=== PATIENT | female | born 1990 | race African-American/Black ===

== ENCOUNTER 2019-09-21 01:33 | Emergency (ER) | payer OTHER ==
[2019-09-21 01:44] VITALS: TEMP 97.3; BMI 22.6
--- NOTE | 2019-09-21 03:24 | PDOC ---
Attending Attestation - Resident Resident Name: Mukesh Haskins - ED Attending Attestation I have performed the following: I have examined & evaluated the patient, The case was reviewed & discussed with the resident, I agree w/resident's findings & plan - HPI HPI: 09/21/19 06:00 Pt states that she feels palpitations. She has no other complaints. States that she felt her heart going fast. She has no job and no kids and no ill contacts. She goes to school at [employer] and commutes. P has no fever and no chills and no vomiting. - Physicial Exam PE: 09/21/19 06:01 afebrile VSS HEENT normal PEERLA Heart S1S2 RRR Lungs clear abd soft nt nd no C/C/E of legs neuro no focal defcits strength and motor intact - Medical Decision Making 09/21/19 05:13 CBC is normal Urine preg negative 09/21/19 05:18 chem is normal 09/21/19 06:02 HR is <80 Heart Score/ECG Review - ECG Intrepretation Rhythm: Regular Rhythm - [place]: Normal - P and CT Prominent R with upright T in V1 (true posterior CA): No Delta Wave(s) Present: No WPW: No - QRS Poor R Wave Progression: No Q Wave Present: No - ST and T Early Repolarization: No Non Specific ST-T Wave changes: No Flattened T Waves: No Prolonged Q-T Interval: No - ECG Impressions Normal ECG: Yes Non-specific ST Elevation: No Ischemic Changes: No Torsades stephanie Pointes: No WPW: No
--- NOTE | 2019-09-21 03:33 | PDOC ---
History of Present Illness <Denise Rodriguez - Last Filed: 09/21/19 05:29> <BethCarmen - Last Filed: 09/21/19 05:36> - History of Present Illness Initial Comments: The pt is a 29F w/ no reported PMH who presents for evaluation of palpitations and concern or a HR of 101 at home at 1800 yesterday evening. She states that she will have intermittent episodes of palpitations that are unrelated to activity or anxiety. She was evaluated with a halter monitor and and ECHO in 2018 that she reports as normal. The pt is concerned that she may be anemic or have thyroid dysfunction. Denies fevers/chills, BEAN, dizziness, vision changes, N/V/C/D, chest pain, trouble breathing, abdominal pain, dysuria, hematuria, or changes in sensation. Menses are 4-5 days and are not described as being persistently heavy. 09/21/19 03:29 <Mukesh Haskins - Last Filed: 09/21/19 06:20> - General Chief Complaint: Palpitations Stated Complaint: PALPITATIONS Time Seen by Provider: 09/21/19 03:23 Past History <Denise Rodriguez - Last Filed: 09/21/19 05:29> <Carmen Beth - Last Filed: 09/21/19 05:36> - Psycho Social/Smoking Cessation Hx Smoking History: Never smoked Hx Alcohol Use: No Drug/Substance Use Hx: No <Mukesh Haskins - Last Filed: 09/21/19 06:20> - Past Medical History Allergies/Adverse Reactions: Allergies Allergy/AdvReac Type Severity Reaction Status Date / Time No Known Allergies Allergy Verified 09/21/19 01:43 Review of Systems - Review of Systems Able to Perform ROS?: Yes Comments:: GENERAL/CONSTITUTIONAL: No fever or chills. No weakness HEAD, EYES, EARS, NOSE AND THROAT: No change in vision. No change in hearing. No sore throat CARDIOVASCULAR: No chest pain or shortness of breath RESPIRATORY: Denies cough, hemoptysis GASTROINTESTINAL: No nausea, vomiting, diarrhea or constipation GENITOURINARY: No dysuria, frequency, or change in urination MUSCULOSKELETAL: No joint or muscle swelling or pain. No neck or back pain SKIN: No rash NEUROLOGIC: No headache, vertigo, loss of consciousness, or change in strength/ sensation ENDOCRINE: No increased thirst. No abnormal weight change HEMATOLOGIC/LYMPHATIC: No anemia, easy bleeding, or history of blood clots ALLERGIC/IMMUNOLOGIC: No hives or skin allergy 09/21/19 03:31 Is the patient limited Irish proficient: No <Mukesh Haskins - Last Filed: 09/21/19 06:20> *Physical Exam - Vital Signs Last Vital Signs Temp Pulse Resp BP Pulse Ox 97.3 F L 94 H 18 120/70 100 09/21/19 01:43 09/21/19 01:43 09/21/19 01:43 09/21/19 01:43 09/21/19 01:43 <Denise Rodriguez - Last Filed: 09/21/19 05:29> - Vital Signs Last Vital Signs Temp Pulse Resp BP Pulse Ox 97.3 F L 94 H 18 120/70 09/21/19 01:43 09/21/19 01:43 09/21/19 01:43 09/21/19 01:43 09/21/19 01:43 <Carmen Beth - Last Filed: 09/21/19 05:36> - Vital Signs Last Vital Signs Temp Pulse Resp BP Pulse Ox 97.3 F L 94 H 18 120/70 09/21/19 01:43 09/21/19 01:43 09/21/19 01:43 09/21/19 01:43 09/21/19 01:43 - Physical Exam GENERAL: Awake, alert, and oriented to person/place/time, in no acute distress HEAD: No signs of trauma, normoc ephalic, atraumatic EYES: PERRLA, EOMI, sclera anicteric, conjunctiva clear ENT: Hearing grossly normal, nares patent, oropharynx clear without exudates. Moist mucosa LUNGS: No distress, speaks in full sentences, clear to auscultation bilaterally HEART: Regular rate and rhythm, normal S1 and S2, no murmurs appreciated, peripheral pulses normal and equal bilaterally ABDOMEN: Soft, nontender, normoactive bowel sounds. No guarding, no rebound EXTREMITIES: Normal inspection, Normal range of motion, no edema. No clubbing or cyanosis NEUROLOGICAL: Cranial nerves II through XII grossly intact. Normal speech, normal gait, no focal sensorimotor deficits SKIN: Warm, Dry 09/21/19 03:32 <Mukesh Haskins - Last Filed: 09/21/19 06:20> ED Treatment Course - LABORATORY CBC & Chemistry Diagram: 09/21/19 03:25 09/21/19 03:25 - ADDITIONAL ORDERS Additional order review: Laboratory Results 09/21/19 09/21/19 03:25 03:25 Sodium 137 Potassium 4.0 Chloride 109 H Carbon Dioxide 22 Anion Gap 6 L BUN 9.1 Creatinine 0.7 Est GFR (CKD-EPI)AfAm 137.62 Est GFR (CKD-EPI)NonAf 118.74 Random Glucose 112 H Calcium 8.7 Total Bilirubin 0.6 AST 20 ALT 25 Alkaline Phosphatase 77 Total Protein 7.3 Albumin 3.9 TSH 3.59 Serum , Qual Negative 09/21/19 03:25 RBC 4.35 MCV 90.1 MCHC 33.8 RDW 13.1 MPV 11.3 H Neutrophils % 64.7 Lymphocytes % 25.9 Monocytes % 6.9 Eosinophils % 2.0 Basophils % 0.5 <Denise Rodriguez - Last Filed: 09/21/19 05:29> - LABORATORY CBC & Chemistry Diagram: 09/21/19 03:25 09/21/19 03:25 - ADDITIONAL ORDERS Additional order review: Laboratory Results 09/21/19 09/21/19 03:25 03:25 Sodium 137 Potassium 4.0 Chloride 109 H Carbon Dioxide 22 Anion Gap 6 L BUN 9.1 Creatinine 0.7 Est GFR (CKD-EPI)AfAm 137.62 Est GFR (CKD-EPI)NonAf 118.74 Random Glucose 112 H Calcium 8.7 Total Bilirubin 0.6 AST 20 ALT 25 Alkaline Phosphatase 77 Total Protein 7.3 Albumin 3.9 TSH 3.59 Serum , Qual Negative 09/21/19 03:25 RBC 4.35 MCV 90.1 MCHC 33.8 RDW 13.1 MPV 11.3 H Neutrophils % 64.7 Lymphocytes % 25.9 Monocytes % 6.9 Eosinophils % 2.0 Basophils % 0.5 <Carmen Beth - Last Filed: 09/21/19 05:36> - LABORATORY CBC & Chemistry Diagram: 09/21/19 03:25 09/21/19 03:25 <Mukesh Haskins - Last Filed: 09/21/19 06:20> Medical Decision Making - Medical Decision Making The pt is a 29F w/ no reported PMH who presents for evaluation of palpitations and concern or a HR of 101 at home at 1800 yesterday evening. ED Course CMP, CBC, TSH, Serum Preg ECG 09/21/19 03:32 No leukocytosis No anemia Lytes unremarkable No DARCIE LFTs wnl TSH wnl Serum preg neg Results discussed w/ patient Plan for D/C w/ PCP f/u Discharge instructions and return precautions given Patient in agreement and verbalized understanding Dispo: Home <Mukesh Haskins - Last Filed: 09/21/19 06:20> Discharge - Discharge Information Problems reviewed: Yes - Admission No <Denise Rodriguez - Last Filed: 09/21/19 05:29> <BethCarmen - Last Filed: 09/21/19 05:36> - Discharge Information Problems reviewed: Yes - Admission No <Mukesh Haskins - Last Filed: 09/21/19 06:20> - Discharge Information Clinical Impression/Diagnosis: Palpitations Condition: Stable Disposition: HOME - Follow up/Referral Referrals: Jonathon Godinez MD [Primary Care Provider] - - Patient Discharge Instructions Patient Printed Discharge Instructions: DI for Dehydration -- Adult Additional Instructions: You were seen in the ER for palpitations. We did lab work on your blood, and an electrocardiogram, and we did not find any concerning abnormalities. After our assessment, we do not believe you are having a medical emergency at this time, and we believe you are safe to go home. Please follow up with your primary care provider in 1-3 days. Call their clinic as soon as possible, tell them you were seen in the ER, and tell them you need an appointment. If you have any new or worsening symptoms, especially chest discomfort, shortness of breath, sweats, nausea, loss of consciousness, or other symptoms, please come back to the ER at any time (24 hours a day). If you are having severe or life threatening symptoms , or symptoms that make it unsafe to drive or have someone drive you, please call 911. - Post Discharge Activity Work/Back to School Note: Back to Work
[2019-09-21 04:47] LABS: BASO % 0.5 % (0-2.0); HEMATOCRIT 39.2 % (32.4-45.2); HEMOGLOBIN 13.2 GM/dL (10.7-15.3); LYMPH % 25.9 % (8-40); MCH 30.5 pg (25.7-33.7); MCHC 33.8 g/dl (32.0-36.0); MEAN CELL VOLUME 90.1 fl (80-96); MEAN PLT VOLUME 11.3 fl (7.5-11.1); MONO % 6.9 % (3.8-10.2); NEUT % 64.7 % (42.8-82.8); PLATELET COUNT 178 K/MM3 (134-434); RBC 4.35 M/mm3 (3.60-5.2); RDW 13.1 % (11.6-15.6); WHITE BLOOD COUNT 7.3 K/mm3 (4.0-10.0)
[2019-09-21 05:17] LABS: ALBUMIN 3.9 g/dl (3.4-5.0); BILIRUBIN,TOTAL 0.6 mg/dL (0.2-1); BLOOD UREA NITROGEN 9.1 mg/dL (7-18); CALCIUM 8.7 mg/dL (8.5-10.1); CREATININE 0.7 mg/dL (0.55-1.3); TOT PROT 7.3 g/dl (6.4-8.2)
[2019-09-21 06:48] VITALS: BP 124/95; PULSE 85
--- NOTE | 2019-09-21 09:54 | EKG ---
Test Reason : Blood Pressure : / mmHG Vent. Rate : 085 BPM Atrial Rate : 085 BPM P-R Int : 150 ms QRS Dur : 080 ms QT Int : 374 ms P-R-T Axes : 070 077 059 degrees QTc Int : 445 ms NORMAL SINUS RHYTHM NORMAL ECG NO PREVIOUS ECGS AVAILABLE Confirmed by KARLIE RAMOS MD ([id number]) on 09/21/2019 9:54:01 AM Referred By: Confirmed By:KARLIE RAMOS MD
== END 2019-09-21 05:45 | disposition home or self-care (01) ==
LOC: JER 01:33
DX: R00.2 Palpitations (principal)
CPT/HCPCS: 36415; 80053; 84443; 84703; 85025; 93005; 93010; 99283-25

== ENCOUNTER 2020-05-23 14:42 | Emergency (ER) | payer OTHER ==
--- NOTE | 2020-05-23 14:49 | PDOC ---
Rapid Medical Evaluation Time Seen by Provider: 05/23/20 14:46 Medical Evaluation: Allergies Allergy/AdvReac Type Severity Reaction Status Date / Time No Known Allergies Allergy Verified 09/21/19 01:43 05/23/20 14:46 Pt presents for vaginal bleeding starting today, currently 9 weeks . LMP 03/18. Notes she had bright red blood. Denies abdominal and back pain. Exam: defer to provider Orders: labs, TVUS Pt to proceed to the ER for further evaluation Discharge Disposition - Diagnosis Vaginal bleeding before 22 weeks gestation - Referrals - Patient Instructions - Post Discharge Activity
[2020-05-23 14:50] VITALS: BP 126/69; PULSE 107; TEMP 98; BMI 22.1
--- NOTE | 2020-05-23 16:03 | PDOC ---
History of Present Illness - General Chief Complaint: Vaginal Bleeding Stated Complaint: 9WK [place]/VAGINAL BLEEDING Time Seen by Provider: 05/23/20 14:46 History Source: Patient Exam Limitations: Clinical Condition - History of Present Illness Travel History: No Initial Comments: 05/23/20 15:58 Patient with no significant past medical history G1, P0 LMP March 24 presented with complaint of vaginal bleeding since this morning at 9 weeks . Patient reported having blood after using bathroom today. Patient reported not enough bleeding to use sanitary pad. Reported bleeding is improved now. Denies dysuria, burning with urination, abdominal pain, dizziness, weakness, shortness of breath, pelvic pain. Denies any other symptom. Patient came in to make sure her is fine Timing/Duration: reports: intermittent Past History - Medical History Allergies/Adverse Reactions: Allergies Allergy/AdvReac Type Severity Reaction Status Date / Time No Known Allergies Allergy Verified 05/23/20 14:46 COPD: No - Reproductive History Is Patient Now?: Yes - Psycho-Social/Smoking History Smoking History: Never smoked - Substance Abuse Hx (Audit-C & DAST Scrn) How often the patient has a drink containing alcohol: Never Score: In Men: 4 or > Positive; In Women: 3 or > Positive: 0 Screen Result (Pos requires Nsg. Audit-10AR): Negative In the last yr the pt used illegal drug/Rx for NonMed reason: No Score: Yes response is considered Positive: 0 Screen Result (Positive result requires Nsg. DAST-10): Negative Review of Systems - Review of Systems Able to Perform ROS?: Yes Is the patient limited Brazilian proficient: No Constitutional: No: Chills, Fever, Malaise HEENTM: No: Symptoms Reported, See HPI, Eye Pain, Blurred Vision, Tearing, Recent change in vision, Double Vision, Cataracts, Ear Pain, Ocular Prothesis, Ear Discharge, Nose Pain, Nose Congestion, Tinnitus, Nose Bleeding, Hearing Loss, Throat Pain, Throat Swelling, Mouth Pain, Dental Problems, Difficulty Swallowing, Mouth Swelling, Other Respiratory: No: Symptoms reported, See HPI, Cough, Orthopnea, Shortness of Breath, SOB with Exertion, SOB at Rest, Stridor, Wheezing, Productive cough, Hemoptysis, Other Cardiac (ROS): No: Symptoms Reported ABD/GI: No: Symptoms Reported, Vomiting, Abdominal cramping : Yes: Symptoms Reported, See HPI, Frequency, Other (vaginal bleed). No: Burning, Dysuria, Pain, Urgency Musculoskeletal: No: Symptoms Reported Neurological: No: Headache, Dizziness All Other Systems: Reviewed and Negative *Physical Exam - Vital Signs Last Vital Signs Temp Pulse Resp BP Pulse Ox 98.0 F 107 H 20 126/69 100 05/23/20 14:46 05/23/20 14:46 05/23/20 14:46 05/23/20 14:46 05/23/20 14:46 - Physical Exam General Appearance: Yes: Nourished, Appropriately Dressed. No: Apparent Distress HEENT: positive: Normal ENT Inspection Respiratory/Chest: negative: Respiratory Distress, Accessory Muscle Use Female Pelvic Exam: positive: normal external exam, cervical os closed. negative: CMT, discharge, lesions, vaginal bleeding (very trace amount of dark blood in vaginal vault with no bleeding. Cervical os closed. No cervical motion tenderness. No visible lesion in vaginal vault. No abdominal tenderness exam.) Gastrointestinal/Abdominal: positive: Normal Bowel Sounds, Flat, Soft. negative: Tender, Organomegaly, Guarding, Rebound Musculoskeletal: positive: Normal Inspection. negative: CVA Tenderness Extremity: positive: Normal Inspection, Normal Range of Motion Integumentary: positive: Normal Color Neurologic: positive: Fully Oriented, Alert, Normal Mood/Affect, Normal Response ED Treatment Course - LABORATORY CBC & Chemistry Diagram: 05/23/20 15:35 05/23/20 15:35 Medical Decision Making - Medical Decision Making 05/23/20 16:00 Patient with no significant past medical history G1, P0 LMP March 24 presented with complaint of vaginal bleeding since this morning at 9 weeks . Patient reported having blood after using bathroom today. Patient reported not enough bleeding to use sanitary pad. Reported bleeding is improved now. Denies dysuria, burning with urination, abdominal pain, dizziness, weakness, shortness of breath, pelvic pain. Denies any other symptom. Patient came in to make sure her is fine Exam significant for very trace amount of dark blood in vaginal vault with no bleeding. Cervical os closed. No cervical motion tenderness. No visible lesion in vaginal vault. No abdominal tenderness exam. Patient symptoms likely threatened AB. Pelvic ultrasound shows live IUP with crown-rump length of 2.55 cm consistent with 9.2 weeks gestational age with heart rate of 170 bpm. No adnexal mass on ultrasound. Patient type and screen to make sure no need for RhoGam and basic CBC and chemistry lab. UA and urine culture sent to rule out UTI 05/23/20 16:53 CBC and chemistry lab normal. blood type show O+ and does not need RhoGam. UA normal. Patient asymptomatic now and stable for discharge with pelvic rest and OB follow-up with strict follow-up instructions Discharge - Discharge Information Problems reviewed: Yes Clinical Impression/Diagnosis: Vaginal bleeding before 22 weeks gestation, Threatened in early Condition: Improved Disposition: HOME - Admission No - Follow up/Referral Referrals: Jonathon Godinez MD [Primary Care Provider] - - Patient Discharge Instructions Patient Printed Discharge Instructions: DI for Threatened Additional Instructions: Your blood work is normal. Your ultrasound shows normal of 9 weeks with normal heart rate. Rest and no strenuous activity for the next few. Have pelvic rest and no sex for the next few days. Follow-up with your [facility] - Post Discharge Activity
[2020-05-23 16:27] LABS: BASO % 0.2 % (0-2.0); EOS % 0.6 % (0-4.5); HEMATOCRIT 38.7 % (32.4-45.2); HEMOGLOBIN 13.4 GM/dL (10.7-15.3); LYMPH % 15.9 % (8-40); MCH 31.8 pg (25.7-33.7); MCHC 34.7 g/dl (32.0-36.0); MEAN CELL VOLUME 91.6 fl (80-96); MONO % 7.4 % (3.8-10.2); NEUT % 75.9 % (42.8-82.8); PLATELET COUNT 181 K/MM3 (134-434); RBC 4.22 M/mm3 (3.60-5.2); RDW 13.3 % (11.6-15.6); WHITE BLOOD COUNT 9.6 K/mm3 (4.0-10.0)
[2020-05-23 16:44] LABS: ALBUMIN 3.5 g/dl (3.4-5.0); BILIRUBIN,TOTAL 0.4 mg/dL (0.2-1); CALCIUM 8.6 mg/dL (8.5-10.1); CREATININE 0.6 mg/dL (0.55-1.3); EPI CELLS 14 /uL (0-25.1); HYALINE CASTS 0 /uL (0-3.1); PH,URINE 7.5 (5.0-8.0); POTASSIUM 3.9 mmol/L (3.5-5.1); URINE APPEARANCE CLEAR; URINE BACTERIA 303 /uL (0-1359); URINE BILIRUBIN NEGATIVE (NEGATIVE); URINE COLOR YELLOW; URINE GLUCOSE (UA) NEGATIVE (NEGATIVE); URINE KETONE NEGATIVE (NEGATIVE); URINE LEUK ESTERASE NEGATIVE (NEGATIVE); URINE NITRITE NEGATIVE (NEGATIVE); URINE PROTEIN NEGATIVE (NEGATIVE); URINE RBC 7 /uL (0-23.9); URINE UROBILINOGEN 0.2 mg/dL (0.2-1.0); URINE WBC 7 /uL (0-25.8)
== END 2020-05-23 16:53 | disposition home or self-care (01) ==
LOC: JER 14:42
DX: O20.0 Threatened abortion (principal); O26.851 Spotting complicating pregnancy, first trimester; Z3A.09 9 weeks gestation of pregnancy
CPT/HCPCS: 36415; 76801-TC; 80053; 81003; 84702; 85025; 86850; 86900; 86901; 87086; 99284-25

== ENCOUNTER 2020-12-20 07:20 | Inpatient (IN) | payer OTHER ==
[2020-12-20] MEDS ORDERED: BUTORPHANOL TARTRATE 1 MG/ML VIAL IVPUSH PRN (07:58)
[2020-12-20] MEDS ORDERED: PROMETHAZINE HCL 25 MG/1 ML VIAL IVPUSH ONE (07:58)
[2020-12-20] MEDS ORDERED: DINOPROSTONE 10 MG VAGINAL SUPPOSITORY VG ONE (07:58)
[2020-12-20] MEDS ORDERED: ELECTROLYTE-148 SOLN 1,000 ML IV SCH (08:00)
[2020-12-20 08:29] VITALS: BMI 27.4
[2020-12-20 08:53] LABS: BASO % 0.3 % (0-2.0); EOS % 1.1 % (0-4.5); HEMATOCRIT 33.4 % (32.4-45.2); HEMOGLOBIN 11.9 GM/dL (10.7-15.3); LYMPH % 17.5 % (8-40); MCH 32.3 pg (25.7-33.7); MCHC 35.6 g/dl (32.0-36.0); MEAN CELL VOLUME 90.6 fl (80-96); MEAN PLT VOLUME 11.2 fl (7.5-11.1); MONO % 6.9 % (3.8-10.2); NEUT % 74.2 % (42.8-82.8); PLATELET COUNT 127 K/MM3 (134-434); RBC 3.69 M/mm3 (3.60-5.2); RDW 13.6 % (11.6-15.6); WHITE BLOOD COUNT 9.9 K/mm3 (4.0-10.0)
[2020-12-20 09:07] LABS: INR 0.89 (0.83-1.09)
[2020-12-20 09:10] LABS: ACTIVATED PTT 24.7 SECONDS (25.2-36.5)
[2020-12-20 09:21] LABS: CALCIUM 8.4 mg/dL (8.5-10.1)
[2020-12-20 09:22] LABS: BLOOD UREA NITROGEN 6.4 mg/dL (7-18)
[2020-12-20 09:25] LABS: CREATININE 0.6 mg/dL (0.55-1.3)
[2020-12-20] MEDS: LACTATED RINGERS SOLUTION 1,000 ML IV SCH (16:30)
[2020-12-20] MEDS ORDERED: FLUCONAZOLE 150 MG TABLET PO ONE (22:03)
[2020-12-20] MEDS ORDERED: PROMETHAZINE HCL 25 MG/1 ML VIAL ONE (22:14)
[2020-12-20] MEDS ORDERED: BUTORPHANOL TARTRATE 2 MG/ML VIAL ONE (22:14)
[2020-12-21] MEDS: LACTATED RINGERS SOLUTION 1,000 ML IV SCH (00:30)
[2020-12-21] MEDS: DEXTROSE 5%-LACTATED RINGERS 1,000 ML IV SCH (07:30)
[2020-12-21] MEDS ORDERED: OXYTOCIN 30 UNITS in 0.9% NS 30 UNIT/500 ML INFUS.BAG IVPB ONE (09:50)
[2020-12-21] MEDS: OXYTOCIN 30 UNITS in 0.9% NS 30 UNIT/500 ML INFUS.BAG IVPB SCH (09:55)
[2020-12-21 12:05] LABS: BASO % 0.1 % (0-2.0); EOS % 0.5 % (0-4.5); HEMOGLOBIN 11.7 GM/dL (10.7-15.3); LYMPH % 12.3 % (8-40); MCH 31.8 pg (25.7-33.7); MCHC 34.4 g/dl (32.0-36.0); MEAN CELL VOLUME 92.3 fl (80-96); MEAN PLT VOLUME 11.2 fl (7.5-11.1); MONO % 7.7 % (3.8-10.2); NEUT % 79.4 % (42.8-82.8); PLATELET COUNT 111 K/MM3 (134-434); RBC 3.68 M/mm3 (3.60-5.2); RDW 13.6 % (11.6-15.6); WHITE BLOOD COUNT 9.3 K/mm3 (4.0-10.0)
[2020-12-21] MEDS ORDERED: FENTANYL/BUPIVACAINE/NS/PF - PCEA - 50 ML DISP.SYRIN EP ONE ×2 (16:40→22:15)
[2020-12-21] MEDS ORDERED: BUPIVACAINE HCL/PF 0.25% (2.5MG/ML) 10 ML VIAL ONE (17:10)
[2020-12-21] MEDS: FENTANYL/BUPIVACAINE/NS/PF - PCEA - 50 ML DISP.SYRIN EP SCH (17:38)
[2020-12-21] MEDS ORDERED: NALOXONE HCL 0.4 MG/ML VIAL IVPUSH PRN (17:43)
[2020-12-21] MEDS ORDERED: PCA PUMP NR ONE ×2 (18:42→22:15)
[2020-12-22] MEDS ORDERED: FENTANYL/BUPIVACAINE/NS/PF - PCEA - 50 ML DISP.SYRIN EP ONE ×2 (02:46→05:50)
[2020-12-22] MEDS ORDERED: PCA PUMP NR ONE ×2 (05:49→10:48)
[2020-12-22] MEDS: DEXTROSE 5%-LACTATED RINGERS 1,000 ML IV SCH (07:00)
[2020-12-22] MEDS ORDERED: BUPIVACAINE HCL/PF 0.25% (2.5MG/ML) 10 ML VIAL ONE (07:28)
[2020-12-22] MEDS ORDERED: OXYTOCIN 20 UNITS in 0.9% NS 40 UNIT/2,000 ML INFUS.BAG IV ONE (07:46)
[2020-12-22] MEDS ORDERED: ceFAZolin SODIUM 1 GM VIAL ONE (07:47)
[2020-12-22] MEDS ORDERED: LIDO 2%/EPI 1:200000 PRESRVFRE (20 ML SDVIAL) ONE (07:50)
[2020-12-22] MEDS ORDERED: DEXAMETHASONE SOD PHOSPHATE 4 MG/1 ML VIAL ONE (07:51)
[2020-12-22] MEDS ORDERED: ONDANSETRON 4 MG/2 ML VIAL ONE (07:51)
[2020-12-22] MEDS ORDERED: PHENYLEPHRINE HCL 10 MG/1 ML SINGLE DOSE VIAL ONE (07:52)
[2020-12-22] MEDS ORDERED: BENZOCAINE 28 GM HEMORRHOIDAL OINTMENT RC PRN (08:51)
[2020-12-22] MEDS ORDERED: METHYLERGONOVINE MALEATE 0.2 MG/1 ML AMP IM PRN (08:51)
[2020-12-22] MEDS ORDERED: WITCH HAZEL 50% (TUCKS) 40 PAD/JAR PAD TP PRN (08:51)
[2020-12-22] MEDS ORDERED: oxyCODONE HCL 5 MG TABLET PO PRN ×2 (08:51)
[2020-12-22] MEDS ORDERED: IBUPROFEN 800 MG/8 ML IJ IVPB PRN (08:51)
[2020-12-22] MEDS ORDERED: BENZOCAINE 20% 57 GM BOTTLE TP PRN (08:51)
[2020-12-22] MEDS ORDERED: diphenhydrAMINE HCL 25 MG CAPSULE (FP) PO PRN (08:51)
[2020-12-22] MEDS ORDERED: OXYTOCIN 20 UNITS in 0.9% NS 20 UNIT/1,000 ML INFUS.BAG IV SCH (09:00)
[2020-12-22] MEDS ORDERED: ONDANSETRON 4 MG/2 ML VIAL IVPUSH PRN (09:07)
[2020-12-22] MEDS ORDERED: ACETAMINOPHEN 1000 MG/100 ML VIAL (NON FORMULARY) IVPB PRN (09:08)
[2020-12-22] MEDS ORDERED: ACETAMINOPHEN INJECTION 100 ML IVPB ONE (09:47)
[2020-12-22 10:06] LABS: CORD BASE EXCESS -3.6 mmol/L (0-2); CORD PCO2 36.8 mmHg (30-78); CORD pH 7.374 (7.14-7.44)
[2020-12-22 10:07] LABS: CORD BASE EXCESS -5.8 mmol/L (0-2); CORD HCO3 20.7 mmHg (20-29); CORD PCO2 44.3 mmHg (30-78); CORD pH 7.287 (7.14-7.44)
[2020-12-22] MEDS: OXYTOCIN 30 UNITS in 0.9% NS 30 UNIT/500 ML INFUS.BAG IVPB SCH (10:07)
[2020-12-22] MEDS: CEFAZOLIN 1 GM/D5W 1 GM/50 ML BAG IVPB SCH ×2 (10:08→17:24)
[2020-12-22] MEDS: LACTATED RINGERS SOLUTION 1,000 ML IV SCH (10:22)
[2020-12-22] MEDS: FENTANYL/BUPIVACAINE/NS/PF - PCEA - 50 ML DISP.SYRIN EP SCH (19:41)
[2020-12-22] MEDS: SIMETHICONE 80 MG TAB.CHEW (FP) PO PRN (23:26)
[2020-12-22] MEDS: ACETAMINOPHEN 325 MG TABLET (FP) PO PRN (23:26)
[2020-12-22] MEDS: IBUPROFEN 600 MG TABLET (FP) PO PRN (23:26)
[2020-12-23] MEDS: IBUPROFEN 600 MG TABLET (FP) PO PRN ×3 (06:31→20:19)
[2020-12-23] MEDS: ACETAMINOPHEN 325 MG TABLET (FP) PO PRN ×3 (06:32→20:19)
[2020-12-23] MEDS: SIMETHICONE 80 MG TAB.CHEW (FP) PO PRN ×3 (06:32→20:18)
[2020-12-23] MEDS ORDERED: BISACODYL 10 MG SUPP.RECT PR PRN (08:51)
[2020-12-23 09:09] LABS: BASO % 0.1 % (0-2.0); EOS % 0.6 % (0-4.5); HEMATOCRIT 31.2 % (32.4-45.2); HEMOGLOBIN 10.9 GM/dL (10.7-15.3); LYMPH % 6.3 % (8-40); MCH 32.4 pg (25.7-33.7); MCHC 34.9 g/dl (32.0-36.0); MEAN CELL VOLUME 92.6 fl (80-96); MONO % 6.3 % (3.8-10.2); NEUT % 86.7 % (42.8-82.8); PLATELET COUNT 115 K/MM3 (134-434); RBC 3.37 M/mm3 (3.60-5.2); RDW 13.8 % (11.6-15.6)
[2020-12-23] MEDS: ENOXAPARIN NA (PORCINE) 40 MG/0.4 ML DISP.SYRIN SQ SCH (11:06)
[2020-12-24] MEDS: IBUPROFEN 600 MG TABLET (FP) PO PRN ×4 (00:13→20:31)
[2020-12-24] MEDS: ACETAMINOPHEN 325 MG TABLET (FP) PO PRN ×4 (00:14→20:31)
[2020-12-24] MEDS: SIMETHICONE 80 MG TAB.CHEW (FP) PO PRN ×3 (00:15→15:49)
[2020-12-24] MEDS: ENOXAPARIN NA (PORCINE) 40 MG/0.4 ML DISP.SYRIN SQ SCH (09:38)
[2020-12-24] MEDS ORDERED: SENNOSIDES/DOCUSATE COMBO (SENNA PLUS) TABLET (UD) PO PRN (22:00)
[2020-12-25] MEDS: IBUPROFEN 600 MG TABLET (FP) PO PRN ×3 (04:31→12:35)
[2020-12-25] MEDS: ACETAMINOPHEN 325 MG TABLET (FP) PO PRN ×3 (04:31→12:35)
[2020-12-25] MEDS: SIMETHICONE 80 MG TAB.CHEW (FP) PO PRN ×2 (04:32→09:34)
[2020-12-25 05:50] LABS: BASO % 0.6 % (0-2.0); EOS % 2.4 % (0-4.5); HEMATOCRIT 30.3 % (32.4-45.2); HEMOGLOBIN 10.7 GM/dL (10.7-15.3); LYMPH % 14.7 % (8-40); MCH 32.2 pg (25.7-33.7); MCHC 35.5 g/dl (32.0-36.0); MEAN CELL VOLUME 90.7 fl (80-96); MEAN PLT VOLUME 10.8 fl (7.5-11.1); MONO % 5.9 % (3.8-10.2); NEUT % 76.4 % (42.8-82.8); PLATELET COUNT 148 K/MM3 (134-434); RBC 3.34 M/mm3 (3.60-5.2); RDW 13.7 % (11.6-15.6); WHITE BLOOD COUNT 10.7 K/mm3 (4.0-10.0)
[2020-12-25] MEDS: ENOXAPARIN NA (PORCINE) 40 MG/0.4 ML DISP.SYRIN SQ SCH (09:34)
[2020-12-25 10:59] VITALS: BP 115/70; PULSE 90; TEMP 98
== END 2020-12-25 13:00 | disposition home or self-care (01) | DRG 540 ==
LOC: JLDR 07:20 → J3W 12-22 10:15
PROVIDERS: ADMIT Obstetrics & Gynecology; ATTEND Obstetrics & Gynecology
PROC: 3E0P7VZ Introduction of Hormone into Female Reproductive, Via Natural or Artificial Opening (ICD-10-PCS; 2020-12-20)
PROC: 0U7C7ZZ Dilation of Cervix, Via Natural or Artificial Opening (ICD-10-PCS; 2020-12-21)
PROC: 10907ZC Drainage of Amniotic Fluid, Therapeutic from Products of Conception, Via Natural or Artificial Opening (ICD-10-PCS; 2020-12-21)
PROC: 10D00Z1 Extraction of Products of Conception, Low, Open Approach (ICD-10-PCS; principal; 2020-12-22)
DX: O62.0 Primary inadequate contractions (principal); O76 Abnormality in fetal heart rate and rhythm complicating labor and delivery; O75.2 Pyrexia during labor, not elsewhere classified; O24.02 Pre-existing type 1 diabetes mellitus, in childbirth; E10.9 Type 1 diabetes mellitus without complications; Z79.4 Long term (current) use of insulin; O99.113 Other diseases of the blood and blood-forming organs and certain disorders involving the immune mechanism complicating pregnancy, third trimester; D69.6 Thrombocytopenia, unspecified; Z3A.40 40 weeks gestation of pregnancy; Z37.0 Single live birth
CPT/HCPCS: 36415; 36600; 80048; 82803; 82962; 85025; 85610; 85730; 86780; 86850; 86900; 86901; 88307-TC; C9803; J0131; U0003; U0005